=== PATIENT | female | born 1970 | race African-American/Black ===

== ENCOUNTER 2018-05-19 13:37 | Emergency (ER) | payer OTHER ==
[~2018-05-19] VITALS: Ht 167.6 cm; Wt 108.5 kg
[~2018-05-19 13:37] MED LIST: BACTRIM,SEPT1 TABLET PO; EPZICOM1 TABLET PO; HYDROCODON-ACE1 EAC7 PO; MOTRIN400 MG PO; MOTRIN800 MG PO; NAPROSYN500 MG PO; NORVIR; NORVIR100 MG PO; PERCOCET 5/31 TABLET PO; PREZISTA400 MG PO; [UNRECOGNIZED DRUG - REMARK]
[2018-05-19] MEDS ORDERED: PEN-VEE K,VEET500 MG PO (16:58)
[2018-05-19] MEDS ORDERED: PERCOCET 5/31 TABLET PO (16:58)
[2018-05-19 18:25] VITALS: BP 193/98
== END 2018-05-19 18:26 | disposition home or self-care (01) ==
LOC: RME 13:37 → EME 13:37 → RME 18:26
PROC: 3E0T3BZ Introduction of Anesthetic Agent into Peripheral Nerves and Plexi, Percutaneous Approach (ICD-10-PCS; principal; 2018-05-19)
DX: K04.7 Periapical abscess without sinus (principal); R03.0 Elevated blood-pressure reading, without diagnosis of hypertension
CPT/HCPCS: 99281; 99284